=== PATIENT | male | born 1995 | race Caucasian/White ===

== ENCOUNTER 2017-07-17 07:10 | Emergency (ER) | payer BC ==
[2016-04-22 02:16] VITALS: BMI 26.4
--- NOTE | ~2017-07-17 | EC ---
PATIENT:TERESA FARLEY DATE OF SERVICE: 07/17/17 SEX: M MEDICAL RECORD: [id number] DATE OF : [birth year] LOCATION:D.ER AGE OF PATIENT: 21 ADMISSION DATE: 07/17/17 REFERRING PHYSICIAN: INTERPRETING PHYSICIAN: ODALIS BUNN MD ECHOCARDIOGRAM REPORT ECHO CHARGES 4 ECHO COMPLETE CLINICAL DIAGNOSIS: AFIB ECHOCARDIOGRAPHIC MEASUREMENTS (adult normal given) AC root (d.<3.7cm) 4.1 cm LV Septum d (<1.2 cm> 1.1 cm Valve Excursion 2.0 cm LV Septum (systole) 1.7 cm Left Atria (s.<4.0cm> cm LVPW d(<1.2cm) 1.5 cm RV (d.<2.3cm) 3.4 cm LVPW (sytole) 2.0 cm LV diastole(<5.6CM) 5.8 cm MV E-F(>70mm/sec) cm LV systole 3.6 cm LVOT Diameter 2.6 cm MV exc.(>10mm) 2.3 cm Est.ejection fraction (50-75%) % Pericardial Effusion N DOPPLER: LVIT cm/sec A cm/sec E cm/sec LA cm/sec RVSP 133 mmHg LVOT cm/sec AOP1/2T m/s Asc. Ao 92 cm/sec RVOT 101 cm/sec RA 88 cm/sec PA cm/sec AV Gradient Peak 3.53 mmHg AV Mean 1.76 mmHg AV Area 4.0 cm MV Gradient Peak 3.42 mmHg MV Mean 1.21 mmHg MV Area cm COMMENTS: Correspondence Review Clerk: Zeinab MASSEY Liability Claims Adjuster: 1 Dr. Bunn TAPE# PACS DATE OF SERVICE: 07/17/2017 PROCEDURE: Echocardiogram. FINDINGS: 1. Left ventricular chamber size is within normal limits. Left ventricular systolic function is normal. Overall ejection fraction estimated at 60%. 2. Left atrium is enlarged at 4.2 cm. Right atrium and right ventricle chamber sizes are as well mildly dilated. 3. Valvular structures have normal structure and motion. ECHOCARDIOGRAM REPORT [id number] TERESA FARLEY 4. Doppler interrogation reveals no significant valvular insufficiency or stenosis. 5. No evidence of pericardial effusion or left ventricular thrombus. 6. The patient was in atrial fibrillation during the study. TRANSINT:[id number] Voice Confirmation ID: [id number] DOCUMENT ID: [id number] ODALIS BUNN MD CC: [id number] DICTATION DATE: 07/20/17 1212 ASSISTANT PORTFOLIO MANAGER: 07/20/17 1308 DEP ER 07/17/17 [place] [id number]
--- NOTE | ~2017-07-17 | CN ---
PATIENT NAME:TERESA FARLEY MEDICAL RECORD: [id number] : [birth year] LOCATION:.ER ADMIT DATE: ACCOUNT: [id number] CONSULTING PHYSICIAN: ODALIS MCDONNELL MD REFERRING PHYSICIAN: ARACELI BROWN MD DATE OF CONSULTATION: 07/17/2017 DIAGNOSES: 1. New onset atrial fibrillation. 2. ETOH abuse. HISTORY OF PRESENT ILLNESS: This is a gentleman with no previous cardiac history, who is a heavy drinker, drank heavily last night, this morning woke up, he was in atrial fibrillation. He had rapid ventricular response. He has been given labetalol, Cardizem here in the Emergency Room as well as Rythmol. He is still in atrial fibrillation, heart rates in the 80s and 90s, systolic blood pressures in the 120s range. PHYSICAL EXAMINATION: GENERAL APPEARANCE: Well-nourished, well-developed, appears stated age. Level of distress, comfortable. PSYCHIATRIC: Mental status, alert, normal affect. Orientation, oriented to time, place and person. EYES: Lids and conjunctiva, noninjected. No discharge, no pallor. ENT: Lips, teeth, gums, normal dentition. Oropharynx, no cyanosis, no pallor. NECK: Carotid arteries, bilateral normal upstroke, no bruits, no thrills. JUGULAR VEINS: No jugular venous pressure or distention. CERVICAL LYMPH NODES: Nontender, nonenlarged. THYROID: Not enlarged. Nontender. No nodules. LUNGS: Respiratory effort, unlabored. CHEST: Normal curvature. No thoracic deformity. No chest wall tenderness. Percussion, resonant. Auscultation, clear. No wheezes, no rales, no rhonchi. CARDIOVASCULAR: Precordial exam, nondisplaced. No heaves or pericardial thrills. Rate and rhythm, regular. Heart sounds, normal S1, normal S2. No S3, no gallop, no rub. Systolic murmur, not heard. Diastolic murmur, not heard. EXTREMITIES: No cyanosis, no edema. Peripheral pulses, full and equal in all extremities, except as noted. No bruits appreciated. ABDOMEN: Soft, nondistended. Normal aorta. No bruit. Nontender. No masses. Liver, nontender, no hepatomegaly. Spleen, nontender, no splenomegaly. MUSCULOSKELETAL: No joint tenderness. No joint swelling. No erythema. NEUROLOGICAL: Normal gait, normal strength, normal tone. SKIN: Warm and dry. OVERALL IMPRESSION: New onset atrial fibrillation associated with his heavy ETOH abuse. At this time, we will get an echocardiogram. Continue the Rythmol 300 mg p.o. b.i.d. Continue Lopressor 25 mg b.i.d. We will see him back in the office Thursday. We will give samples of Xarelto. If he is still in atrial fibrillation, we will consider DC cardioversion. TRANSINT:[id number] Voice Confirmation ID: [id number] DOCUMENT ID: [id number] CONSULT REPORT [id number] TERESA FARLEY JEFFREY MD CC: [id number] DICTATION DATE: 07/17/17 1217 CASH CHECKER: 07/17/17 1230 [place] [id number] [place] [address]
[~2017-07-17 07:10] MED LIST: HYDROCODON-ACE1 EAC7 PO
[2017-07-17 07:51] LABS: BASOPHILS 0.4 % (0-2); EOSINOPHILS 0.7 % (0-7); HEMATOCRIT 52.5 % (42.0-54.0); HEMOGLOBIN 18.7 g/dL (13.5-17.5); IMMATURE GRANULOCYTES 0.1 % (0-5); LYMPHOCYTES 20.8 % (15-50); MCH 33.4 pg (26.0-34.0); MCHC 35.6 g/dL (31.0-37.0); MCV 93.8 fL (80.0-100.0); MEAN PLATELET VOLUME 9.5 fL (7.4-10.4); MONOCYTES 8.4 % (2-11); NEUTROPHILS 69.6 % (40-80); PLATELET COUNT 269 10x3/uL (130-400); RDW 12.3 % (11.5-14.5); WBC 7.3 10x3/uL (4.8-10.8)
[2017-07-17 08:03] LABS: ALBUMIN 4.3 g/dL (3.4-5.0); ALKALINE PHOSPHATASE 98 U/L (46-116); ALT (SGPT) 39 U/L (10-68); BILIRUBIN - TOTAL 0.39 mg/dL (0.2-1.3); CALC OSMOLALITY 282 mosm/kg (275-300); CARBON DIOXIDE 28.1 mmol/L (21.0-32.0); CHLORIDE - SERUM 104 mmol/L (98-107); GLUCOSE 120 mg/dL (74-106); POTASSIUM - SERUM 3.4 mmol/L (3.5-5.1); PROTEIN - SERUM 7.8 g/dL (6.4-8.2); SODIUM 142 mmol/L (136-145); UREA NITROGEN 11 mg/dL (7-18); eGFR NON AFRICAN AMERICAN > 90 mL/min (90-120)
[2017-07-17 08:15] LABS: CREATINE KINASE 239 UL (21-232); MAGNESIUM - SERUM 1.8 mg/dL (1.8-2.4); PRO BNP 11 pg/mL (0-125)
[2017-07-17 08:18] LABS: TROPONIN-I < 0.017 ng/mL (0.000-0.060)
[2017-07-17 08:19] LABS: PHOSPHOROUS 1.1 mg/dL (2.5-4.9)
[2017-07-17 08:40] LABS: UDS - AMPHET NEGATIVE QUAL (NEGATIVE); UDS - BARB NEGATIVE QUAL (NEGATIVE); UDS - BENZO NEGATIVE QUAL (NEGATIVE); UDS - COCAINE NEGATIVE QUAL (NEGATIVE); UDS - OPIATE NEGATIVE QUAL (NEGATIVE); UDS - PCP NEGATIVE QUAL (NEGATIVE); UDS - THC NEGATIVE QUAL (NEGATIVE)
== END 2017-07-17 14:50 | disposition home or self-care (01) ==
LOC: D.ER 07:10
PROVIDERS: Family Medicine
DX: I48.91 Unspecified atrial fibrillation (principal)

== ENCOUNTER 2020-02-02 15:08 | Emergency (ER) | payer BC ==
[~2020-02-02] VITALS: Ht 185.4 cm; Wt 95.5 kg
[~2020-02-02 15:08] MED LIST changes: +BUPROPION HCL75 MG PO; +BYSTOLIC2.5 MG PO; +LIBRIUM5 MG PO
[2020-02-02 15:15] VITALS: Ht 185.4 cm; Wt 95.5 kg
[2020-02-02 15:45] LABS: BASOPHILS 0.2 % (0-2); EOSINOPHILS 0.4 % (0-7); HEMATOCRIT 46.3 % (42.0-54.0); HEMOGLOBIN 16.3 g/dL (13.5-17.5); IMMATURE GRANULOCYTES 0.2 % (0-5); LYMPHOCYTES 15.4 % (15-50); MCH 33.4 pg (26.0-34.0); MCHC 35.2 g/dL (31.0-37.0); MCV 94.9 fL (80.0-100.0); MEAN PLATELET VOLUME 9.4 fL (7.4-10.4); MONOCYTES 11.1 % (2-11); NEUTROPHILS 72.7 % (40-80); PLATELET COUNT 254 10x3/uL (130-400); RBC 4.88 10x6/uL (4.20-6.10); RDW 12.5 % (11.5-14.5); WBC 8.3 10x3/uL (4.8-10.8)
[2020-02-02 15:58] LABS: CALC OSMOLALITY 284 mosm/kg (275-300); CALCIUM 9.3 mg/dL (8.5-10.1); CARBON DIOXIDE 30.3 mmol/L (21.0-32.0); CHLORIDE - SERUM 105 mmol/L (98-107); GLUCOSE 107 mg/dL (74-106); POTASSIUM - SERUM 3.4 mmol/L (3.5-5.1); SODIUM 142 mmol/L (136-145); UREA NITROGEN 17 mg/dL (7-18); eGFR NON AFRICAN AMERICAN > 90 mL/min (90-120)
[2020-02-02 16:00] LABS: APTT 24.2 SECONDS (22.8-39.4); INR 1.03 (0.85-1.17); PROTIME 13.4 SECONDS (11.6-15.0)
[2020-02-02 16:16] LABS: ALKALINE PHOSPHATASE 84 U/L (30-120); ALT (SGPT) 31 U/L (10-68); BILIRUBIN - TOTAL 0.53 mg/dL (0.2-1.3); CKMB 1.5 U/L (0.0-3.6); CREATINE KINASE 179 UL (21-232); MAGNESIUM - SERUM 1.8 mg/dL (1.8-2.4); TROPONIN-I 0.019 ng/mL (0.000-0.060)
[2020-02-02] MEDS ORDERED: PROPAFENONE HC225 MG PO (17:51)
[2020-02-02 18:21] VITALS: BP 121/74
== END 2020-02-02 18:22 | disposition home or self-care (01) ==
LOC: D.ER 15:08
PROVIDERS: Family Medicine
DX: I48.91 Unspecified atrial fibrillation (principal); I10 Essential (primary) hypertension; J45.909 Unspecified asthma, uncomplicated; R42 Dizziness and giddiness; R00.2 Palpitations